=== PATIENT | female | born 1955 | race Caucasian/White ===

== ENCOUNTER 2017-08-15 08:59 | Emergency (ER) | payer OTHER ==
[~2017-08-15] VITALS: Ht 157.5 cm; Wt 72.7 kg
[~2017-08-15 08:59] MED LIST: DOXY100C PO; FLUO-191 PO; GLIP5 PO; LOSA25TA21 PO; METF500T4 PO; METH10 PO; RISP1 PO
[2017-08-15] MEDS ORDERED: GEMF600T3 PO (09:14)
[2017-08-15] MEDS ORDERED: HYDR12.530 PO (09:14)
[2017-08-15] MEDS ORDERED: LEVO112T7 PO (09:14)
[2017-08-15] MEDS ORDERED: INSU100V SQ (09:14)
[2017-08-15 09:18] LABS: GLUCOSE,POINT OF CARE 294 MG/DL (70-110)
[2017-08-15 10:57] VITALS: BP 95/60
== END 2017-08-15 11:01 | disposition home or self-care (01) ==
LOC: EMS 09:01
DX: S82.202A Unspecified fracture of shaft of left tibia, initial encounter for closed fracture (principal); I95.9 Hypotension, unspecified; E11.65 Type 2 diabetes mellitus with hyperglycemia; I10 Essential (primary) hypertension; F17.210 Nicotine dependence, cigarettes, uncomplicated; Z79.4 Long term (current) use of insulin; X58.XXXA Exposure to other specified factors, initial encounter; Y93.89 Activity, other specified; Y92.89 Other specified places as the place of occurrence of the external cause; Y99.8 Other external cause status
CPT/HCPCS: 29505; 29540; 82962; 99283; 99406

== ENCOUNTER 2017-08-21 04:53 | Emergency (ER) | payer OTHER ==
[~2017-08-21] VITALS: Ht 157.5 cm; Wt 77.3 kg
[~2017-08-21 04:53] MED LIST changes: -DOXY100C PO; +GEMF600T3 PO; +HYDR12.530 PO; +INSU100V SQ; +LEVO112T7 PO
[2017-08-21] MEDS ORDERED: INSU100C14 SQ (05:57)
[2017-08-21] MEDS ORDERED: IBUPROFEN 600 MG TABLET PO ONE (06:15)
[2017-08-21 06:47] VITALS: BP 144/89
== END 2017-08-21 07:28 | disposition home or self-care (01) ==
LOC: EMS 04:54
DX: S83.92XA Sprain of unspecified site of left knee, initial encounter (principal); E11.9 Type 2 diabetes mellitus without complications; F32.9 Major depressive disorder, single episode, unspecified; I10 Essential (primary) hypertension; F17.210 Nicotine dependence, cigarettes, uncomplicated; Z79.4 Long term (current) use of insulin; Z90.49 Acquired absence of other specified parts of digestive tract; W19.XXXA Unspecified fall, initial encounter; Y93.89 Activity, other specified; Y92.091 Bathroom in other non-institutional residence as the place of occurrence of the external cause; Y99.8 Other external cause status
CPT/HCPCS: 82962; 99284; 99406